=== PATIENT | male | born 2005 | race Two or more races ===

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

== ENCOUNTER 2025-06-08 19:26 | Emergency (ER) | payer MEDICAID ==
[~2025-06-08] VITALS: Ht 165.1 cm; Wt 86.2 kg
[2025-06-08] MEDS ORDERED: MECLIZINE HCL 25 MG TABLET ONE (19:59)
[2025-06-08] MEDS ORDERED: ACETAMINOPHEN 325 MG TABLET ONE (19:59)
[2025-06-08] MEDS: MECLIZINE HCL 25 MG TABLET PO ONE (20:03)
[2025-06-08] MEDS: ACETAMINOPHEN 325 MG TABLET PO ONE (20:03)
[2025-06-08 20:09] LABS: PLATELET COUNT (AUTO) 218 K/uL (150-450); RED BLOOD CELL COUNT(AUTO) 5.60 MIL/uL (4.5-6.0); RED CELL DISTRIBUTION WIDTH 13.3 % (11.5-15.0); WHITE BLOOD COUNT (AUTO) 7.6 K/uL (4.3-11.0)
[2025-06-08 20:31] LABS: CALCIUM, SERUM 8.6 mg/dL (8.5-10.1); CREATININE 0.7 mg/dL (0.6-1.3); SODIUM SERUM 137.0 mmol/L (136-145); UREA NITROGEN, BLOOD 11.0 mg/dL (7-18)
[2025-06-08] MEDS ORDERED: MECL-159 PO (21:44)
[2025-06-08] MEDS ORDERED: IBUP-1955 PO (21:44)
[2025-06-08] MEDS ORDERED: LIDO30AD10 TP (21:44)
[2025-06-08] MEDS ORDERED: ACET325C7 PO (21:44)
[2025-06-08 22:02] VITALS: BP 127/72; TEMP 99; O2SAT 97
== END 2025-06-08 22:02 | disposition home or self-care (01) ==
LOC: ER 19:29
DX: R42 Dizziness and giddiness (principal); R00.2 Palpitations; R51.9 Headache, unspecified; F17.200 Nicotine dependence, unspecified, uncomplicated
CPT/HCPCS: 99285; 71045; 93005; 85025; 80048; 36415; J8597